=== PATIENT | male | born 1970 | race American Indian/Alaskan Native ===

== ENCOUNTER 2021-03-07 09:14 | Emergency (ER) | payer BC ==
[2021-03-07 09:33] VITALS: BP 147/98
--- NOTE | 2021-03-07 11:04 | Emergency Department Report ---
ED General Adult HPI - General Chief complaint: Arrhythmia/Palpitations Stated complaint: PALPITATIONS Time Seen by Provider: 03/07/21 10:31 Source: patient Mode of arrival: Ambulatory Limitations: No Limitations - History of Present Illness Initial comments: 50-year-old -[place] male patient without past medical history presents with complaints of palpitations starting around 2 AM last night. Patient states he has a history of intermittent palpitations over the past 10 years. He states he has seen cardiology and had the palpitations evaluated about 5 years ago, however he states he never received a diagnosis. Patient denies any chest pain, shortness of breath, leg pain/swelling, recent long travel, history of DVT/PE, cough, hemoptysis, or history of cancer. He states the palpitations were much more forceful when they occurred, causing him to come in. Patient also states he noticed that he gets the palpitations when he smokes cigarettes intermittently. No other past medical history per patient. - Related Data Allergies Allergy/AdvReac Type Severity Reaction Status Date / Time No Known Allergies Allergy Verified 03/07/21 09:32 ED Review of Systems ROS: Stated complaint: PALPITATIONS Other details as noted in HPI Constitutional: denies: chills, fever, malaise Respiratory: denies: cough, shortness of breath Cardiovascular: palpitations. denies: chest pain Gastrointestinal: denies: abdominal pain, nausea, vomiting Neurological: denies: headache ED Physical Exam - General Limitations: No Limitations General appearance: alert, in no apparent distress - Head Head exam: Present: atraumatic, normocephalic - Eye Eye exam: Present: normal appearance. Absent: scleral icterus - Neck Neck exam: Present: normal inspection - Respiratory Respiratory exam: Present: normal lung sounds bilaterally. Absent: respiratory distress - Cardiovascular Cardiovascular Exam: Present: regular rate, normal rhythm, normal heart sounds. Absent: systolic murmur - Extremities Exam Extremities exam: Absent: calf tenderness (No swelling noted bilaterally) - Neurological Exam Neurological exam: Present: alert, oriented X3 - Psychiatric Psychiatric exam: Present: normal affect, normal mood - Skin Skin exam: Present: warm, dry, intact, normal color. Absent: rash ED Course Vital Signs 03/07/21 03/07/21 09:31 09:33 Temperature 98.6 F Pulse Rate 99 H Respiratory 16 Rate Blood Pressure 147/98 O2 Sat by Pulse 100 Oximetry ED Medical Decision Making - Lab Data Result diagrams: 03/07/21 10:49 03/07/21 10:49 - EKG Data EKG shows normal: sinus rhythm Rate: normal - EKG Data Interpretation: normal EKG - Radiology Data Radiology results: report reviewed CHEST 2 VIEWS INDICATION / CLINICAL INFORMATION: Cardiac palpitations.. COMPARISON: None available. FINDINGS: SUPPORT DEVICES: None. HEART / MEDIASTINUM: No significant abnormality. LUNGS / PLEURA: No significant pulmonary or pleural abnormality. No pneumothorax. ADDITIONAL FINDINGS: No significant additional findings. IMPRESSION: 1. No acute findings. - Medical Decision Making 50-year-old -[place] male patient without past medical history presents with complaints of palpitations starting around 2 AM last night. Patient states he has a history of intermittent palpitations over the past 10 years. He states he has seen cardiology and had the palpitations evaluated about 5 years ago, however he states he never received a diagnosis. Patient denies any chest pain, shortness of breath, leg pain/swelling, recent long travel, history of DVT/PE, c ough, hemoptysis, or history of cancer. He states the palpitations were much more forceful when they occurred, causing him to come in. Patient also states he noticed that he gets the palpitations when he smokes cigarettes intermittently. No other past medical history per patient. No acute abnormalities noted on CBC, CMP, or troponin. EKG and chest x-ray are normal. Heart exam and lung exam are normal. He continues to deny any chest pain or shortness of breath. His vitals are within normal limits and he is stable for discharge home. Recommend follow-up with cardiology for further evaluation within 2 to 3 days. Discussed in detail signs and symptoms that should prompt immediate return to the ED with patient who verbalizes understanding. Critical care attestation.: If time is entered above; I have spent that time in minutes in the direct care of this critically ill patient, excluding procedure time. ED Disposition Clinical Impression: Palpitations Disposition: 01 HOME / SELF CARE / HOMELESS Is pt being admited?: No Condition: Stable Instructions: Palpitations, Premature Ventricular Contraction Referrals: AIMEE MUNGUIA MD [Staff Physician] - 2-3 Days Forms: Work/School Release Form(ED)
--- NOTE | 2021-03-07 11:12 | XRay Report ---
CHEST 2 VIEWS INDICATION / CLINICAL INFORMATION: Cardiac palpitations.. COMPARISON: None available. FINDINGS: SUPPORT DEVICES: None. HEART / MEDIASTINUM: No significant abnormality. LUNGS / PLEURA: No significant pulmonary or pleural abnormality. No pneumothorax. ADDITIONAL FINDINGS: No significant additional findings. IMPRESSION: 1. No acute findings. Signer Name: Avelino Smith MD Signed: 03/07/2021 11:07 AM Workstation Name: [id number]
[2021-03-07 11:27] LABS: Basophils # (Auto) 0.1 K/mm3 (0.0-0.1); Basophils % (Auto) 1.1 % (0.0-1.8); Eosinophils # (Auto) 0.1 K/mm3 (0.0-0.4); Eosinophils % (Auto) 1.6 % (0.0-4.3); Hemoglobin 15.7 gm/dl (11.8-15.2); Lymphocytes # (Auto) 1.4 K/mm3 (1.2-5.4); Lymphocytes % (Auto) 26.5 % (13.4-35.0); Mean Corpuscular HGB Conc 33 % (32-34); Mean Corpuscular Volume 92 fl (84-94); Monocytes # (Auto) 0.5 K/mm3 (0.0-0.8); Monocytes % (Auto) 9.9 % (0.0-7.3); Platelet Count 196 K/mm3 (140-440); Red Blood Count 5.13 M/mm3 (3.65-5.03); Red Cell Distribution Width 13.6 % (13.2-15.2)
[2021-03-07 11:43] LABS: Alanine Aminotransferase 24 units/L (7-56); Albumin 4.7 g/dL (3.9-5); BUN/Creatinine Ratio 8; Blood Urea Nitrogen 8 mg/dL (9-20); Calcium 9.7 mg/dL (8.4-10.2); Hemolysis Index 16
--- NOTE | 2021-03-08 17:35 | Electrocardiograph Report ---
[facility] Test Date: 2021-03-07 Test Time: 09:36:29 Pat Name: KARISSA COOPER Department: Room: Gender: M Compliance Intern: TV : 1970 Requested By: DAO SCHWARTZ Order Number: [id number] Reading MD: Elroy Del Cid Measurements Intervals [place] Rate: 89 P: 49 RI: 166 QRS: 2 QRSD: 82 T: 33 QT: 376 QTc: 457 Interpretive Statements Sinus rhythm Low voltage, precordial leads No previous ECG available for comparison Electronically Signed On 03-08-2021 17:35:10 EDT by Elroy Del Cid
== END 2021-03-07 14:02 | disposition home or self-care (01) ==
LOC: ED 09:14
DX: R00.2 Palpitations (principal); Z79.899 Other long term (current) drug therapy
CPT/HCPCS: 36415; 71046; 80053; 83735; 84484; 85025; 93005; 99283